=== PATIENT | female | born 1980 | race African-American/Black ===

== ENCOUNTER → 2017-05-04 | Outpatient (CLI) | payer BC, OTHER ==
[~2017-05-04] MED LIST: AMITRIPTYLINE H25 M2 PO; BENADRYL25 MG PO; BUTALB-APAP-CA1 EACH PO; HYDROCHLOROTHIA25 M1; IBUPROFEN 600600 M1 PO; IMITREX 25 MG T25 M1 PO; LEVOTHYROXINE0.05 MG PO; LORTAB 5 MG/5001 TAB PO; LYRICA 75 MG CA75 MG PO; MELOXICAM7.5 MG PO; NORCO 5-325 TA1 EACH PO; NORFLEX100 MG PO; NORVASC10 MG PO; OMEPRAZOLE20 MG; PERCOCET 5-3251 EACH; PHENERGAN 25 MG25 M1 PO; PREDNISONE50 MG PO; TOPAMAX 25 MG T25 M1 PO; TOPROL XL100 MG; ZANTAC 150MG T150 M1 PO
== END ==
LOC: ULTRA 09:28
DX: R10.84 Generalized abdominal pain (principal)

== ENCOUNTER → 2018-04-30 | Outpatient (CLI) | payer BC, OTHER | LOC: ULTRA 10:02 | DX: R59.0 Localized enlarged lymph nodes (principal) ==